=== PATIENT | male | born 1960 | race Caucasian/White ===

== ENCOUNTER 2020-09-25 09:40 | Outpatient (CLI) | payer MEDICARE, BC ==
[2020-09-25] VITALS (16 sets, daily range): BP systolic 102–128; BP diastolic 53–89
== END 2020-09-25 23:59 | disposition home or self-care (01) ==
LOC: CARD DIAG 09:40
PROVIDERS: ATTEND Internal Medicine Interventional Cardiology
DX: R55 Syncope and collapse (principal)
CPT/HCPCS: 93660